=== PATIENT | male | born 1955 | race Caucasian/White ===

== ENCOUNTER 2017-01-21 19:31 | Emergency (ER) | payer OTHER ==
[~2017-01-21] VITALS: Ht 177.8 cm; Wt 86.2 kg
--- NOTE | 2017-01-21 19:44 | ED.ADGEN ---
Adult General Chief Complaint Chief Complaint " I need a caldwell put in...".. " I was at Dr. Perdomo... and they had a CT done for my lower abd. pain.. and I guess it came back with large prostate.. and retained urine.. they called and told me to go to the Emergency Room and get a cath put in and followup tomorrow... "..." I do go to the bathroom.. but not very much at a time..." HPI HPI Patient is a 61 year old male who presents with above hx and complaints of urinary retention. Pt. has a very distended bladder. Pt. reports normal urine check at Dr. Perdomo office. Pt. states they also found he had elevated glucose level and hypertension. Pt. advised he just wanted the caldwell placed and he would follow up with his tomorrow. Patient denies prior history of urinary retention. Patient denies prior history of diabetes. Review of Systems Review of Systems Constitutional: Denies fever or chills [] Eyes: Denies change in visual acuity, redness, or eye pain [] HENT: Denies nasal congestion or sore throat [] Respiratory: Denies cough or shortness of breath [] Cardiovascular: No additional information not addressed in HPI [] GI: Plaints of lower pelvic abdominal pain,. Denies nausea, vomiting, bloody stools or diarrhea [] : Complaints lower pelvic pain discomfort and urinary retention Musculoskeletal: Denies back pain or joint pain [] Integument: Denies rash or skin lesions [] Neurologic: Denies headache, focal weakness or sensory changes [] Endocrine: Denies polyuria or polydipsia [] Family History Family History Non-contributory Current Medications Current Medications Current Medications Medications (Trade) Dose Ordered Sig/Deshaun Start Time Stop Time Status Last Admin Dose Admin Clonidine HCl (Catapres Tts-2) 1 patch 1X ONCE 01/21/17 21:45 01/21/17 21:46 DC 01/21/17 21:45 1 PATCH Clonidine HCl (Catapres) 0.2 mg 1X ONCE 01/21/17 21:45 01/21/17 21:46 DC 01/21/17 21:45 0.2 MG Hydrocodone Bitartrate/ Ibuprofen (Vicoprofen 7.5-200) 2 tab 1X ONCE 01/21/17 21:45 01/21/17 21:46 DC 01/21/17 21:45 2 TAB See Nursing for home meds. Allergies Allergies Allergies Coded Allergies Type Severity Reaction Last Updated Verified No Known Drug Allergies 01/21/17 No NKDA Physical Exam Physical Exam Constitutional: well nourished,moderate distress, non-toxic appearance. [] HENT: Normocephalic, atraumatic, bilateral external ears normal, oropharynx moist, no oral exudates, nose normal. [] Eyes: PERRLA, EOMI, conjunctiva normal, no discharge. [] Neck: Normal range of motion, no tenderness, supple, no stridor. [] Cardiovascular:Heart rate regular rhythm, no murmur [] Lungs & Thorax: Bilateral breath sounds clear to auscultation [] Abdomen: Bowel sounds decreased, soft, super pubic tenderness, no masses, no pulsatile masses. Distended bladder. Pt. declined rectal exam at this time. No true rebound. Skin: Warm, dry, no erythema, no rash. [] Back: No tenderness, no CVA tenderness. [] Extremities: No tenderness, no cyanosis, no clubbing, ROM intact, no edema. [] Neurologic: Alert and oriented X 3, normal motor function, normal sensory function, no focal deficits noted. [] Psychologic: Affect anxious, judgement normal, mood normal. [] Current Patient Data Vital Signs Vital Signs Date Time Temp Pulse Resp B/P Pulse Ox O2 Delivery O2 Flow Rate FiO2 01/21/17 21:45 98 217/120 01/21/17 19:35 98.9 20 100 Room Air Lab Results Laboratory Tests Test 01/21/17 20:40 Urine Collection Type U cath Urine Color Straw Urine Clarity Clear Urine pH 6.5 Urine Specific [place] 1.015 Urine Protein Neg (NEG-TRACE) Urine Glucose (UA) 500mg/dL (NEG) Urine Ketones (Stick) Negmg/dL (NEG) Urine Blood Mod (NEG) Urine Nitrite Neg (NEG) Urine Bilirubin Neg (NEG) Urine Urobilinogen Dipstick 0.2mg/dL (0.2 mg/dL) Urine Leukocyte Esterase Neg (NEG) Urine RBC Occ/HPF (0-2) Urine WBC Occ/HPF (0-4) Urine Squamous Epithelial Cells Occ/LPF Urine Bacteria 0/HPF (0-FEW) EKG EKG [] Radiology/Procedures Radiology/Procedures Reviewed CT findings at 1803 hrs.[] Course & Med Decision Making Course & Med Decision Making Pertinent Labs and Imaging studies reviewed. (See chart for details). After for placement patient had [id number] cc out with marked relief of symptoms. Patient given full instructions. Patient follow-up primary care. Patient return if any concerns. Pt. must follow-up of his elevated glucose level and hypertension. Patient declined any labs or further treatment this time. [] Final Impression Final Impression 1. Hx. of Enlarged Prostate 2. Urinary Retention 3. Hypertension- Accelerated[] 4. Diabetes. New diagnosis 5. Hydronephrosis- Problems: Dragon Disclaimer Dragon Disclaimer This electronic medical record was generated, in whole or in part, using a voice recognition dictation system. JAJA KU MD Jan 21, 2017 19:44
[2017-01-21 21:26] LABS: CLARITY,URINE CLEAR; COLOR,URINE STRAW; GLUCOSE,URINE 500 mg/dL (NEG)
[2017-01-21 21:27] LABS: BACTERIA,URINE 0 /HPF (0-FEW); BILIRUBIN,URINE NEG (NEG); NITRITE,URINE NEG (NEG); RBC,URINE OCC /HPF (0-2); SQUAMOUS EPITHELIAL CELL,UR OCC /LPF; UROBILINOGEN,URINE 0.2 mg/dL (0.2 mg/dL); WBC,URINE OCC /HPF (0-4)
[2017-01-21 21:45] VITALS: BP 217/120
[2017-01-21] MEDS ORDERED: CLONIDINE TTS-2 PATCH TD ONE (21:45)
[2017-01-21] MEDS ORDERED: CLONIDINE HCL 0.1 MG TABLET PO ONE (21:45)
[2017-01-21] MEDS ORDERED: HYDROCODON/IBUPROFEN 7.5/200MG TABLET. PO ONE (21:45)
== END 2017-01-21 21:50 | disposition home or self-care (01) ==
LOC: ER 19:31
DX: R33.9 Retention of urine, unspecified (principal); I10 Essential (primary) hypertension; E11.9 Type 2 diabetes mellitus without complications; N13.30 Unspecified hydronephrosis; R73.02 Impaired glucose tolerance (oral)
CPT/HCPCS: 51702; 81001; 99284-25

== ENCOUNTER → 2017-01-27 | Outpatient (CLI) | payer OTHER ==
[2017-01-21 21:45] VITALS: BP 217/120
== END | disposition home or self-care (01) ==
LOC: CLNUT 13:38
PROVIDERS: ATTEND General Practice
DX: E11.9 Type 2 diabetes mellitus without complications (principal); N40.0 Benign prostatic hyperplasia without lower urinary tract symptoms; R33.9 Retention of urine, unspecified
CPT/HCPCS: 97802

== ENCOUNTER → 2018-04-29 | Outpatient (CLI) | payer OTHER | END | disposition home or self-care (01) | LOC: LAB 09:29 | PROVIDERS: ATTEND Urology | DX: N40.1 Benign prostatic hyperplasia with lower urinary tract symptoms (principal) | CPT/HCPCS: G0103 ==

== ENCOUNTER → 2018-08-05 | Outpatient (CLI) | payer OTHER ==
[2018-08-05 09:38] LABS: BASO # 0.1 x10^3/uL (0.0-0.2); BASO % 1 % (0-3); EOS # 0.4 x10^3/uL (0.0-0.7); EOS % 6 % (0-3); HEMATOCRIT 43.2 % (39.0-53.0); HEMOGLOBIN 14.4 g/dL (13.0-17.5); LYMPH # 1.8 x10^3/uL (1.0-4.8); LYMPH % 27 % (24-48); MEAN CORPUSCULAR HEMOGLOBIN 31 pg (25-35); MEAN CORPUSCULAR HGB CONC 33 g/dL (31-37); MEAN CORPUSCULAR VOLUME 93 fL (79-100); MONO # 0.6 x10^3/uL (0.0-1.1); MONO % 9 % (0-9); NEUT # 3.6 x10^3uL (1.8-7.7); NEUT % 56 % (31-73); PLATELET COUNT 323 x10^3/uL (140-400); RED BLOOD COUNT 4.66 x10^6/uL (4.30-5.70); RED CELL DISTRIBUTION WIDTH 13.7 % (11.5-14.5); WHITE BLOOD COUNT 6.4 x10^3/uL (4.0-11.0)
[2018-08-05 09:54] LABS: ALBUMIN/GLOBULIN RATIO 1.3 (1.0-1.7); ALK PHOS 55 U/L (46-116); ALT (SGPT) 35 U/L (16-63); ANION GAP 7 (6-14); AST (SGOT) 18 U/L (15-37); BLOOD UREA NITROGEN 24 mg/dL (8-26); BUN/CREATININE RATIO 20 (6-20); C REACTIVE PROTEIN < 0.5 mg/L (0-3.3); CALCIUM 9.1 mg/dL (8.5-10.1); CARBON DIOXIDE 30 mmol/L (21-32); CHLORIDE 103 mmol/L (98-107); CREATININE 1.2 mg/dL (0.7-1.3); GFR 61.1; GLUCOSE 147 mg/dL (70-99); POTASSIUM 3.7 mmol/L (3.5-5.1); SODIUM 140 mmol/L (136-145); TOTAL BILIRUBIN 0.5 mg/dL (0.2-1.0); TOTAL PROTEIN 7.2 g/dL (6.4-8.2)
[2018-08-06 03:11] LABS: HEMOGLOBIN A1C 6.2 % (4.8-5.6)
== END | disposition home or self-care (01) ==
LOC: LAB 09:06
PROVIDERS: ATTEND General Practice
DX: I10 Essential (primary) hypertension (principal); E11.9 Type 2 diabetes mellitus without complications
CPT/HCPCS: 36415; 80053; 80061; 83036; 85025; 86140

== ENCOUNTER → 2018-12-23 | Outpatient (CLI) | payer OTHER ==
--- NOTE | 2018-12-23 08:56 | RAD ---
EXAM: Augustine scale and color Doppler renal artery sonogram. HISTORY: Hypertension. TECHNIQUE: Augustine scale and color Doppler sonographic imaging of the kidneys and renal arteries with spectral waveform analysis was performed. COMPARISON: None. FINDINGS: The right kidney measures 10.8 cm [id number]. The left kidney measures 11.8 cm [id number]. No solid or cystic renal lesion is seen. There is no hydronephrosis. There is a heterogeneous enlarged prostate resulting in deformation of the bladder base. There is slight bladder wall thickening which may be due to relative under distention. The mid aspect of the right renal artery is obscured due to bowel gas. The peak systolic velocities within the visualized renal arteries measure 69 cm/s on the right and 73 cm/s on the left. There are normal renal artery to aorta velocity ratios. IMPRESSION: 1. No Doppler evidence of greater than 60 percent stenosis within the renal arteries, with limited evaluation of the right renal artery due to bowel gas. 2. Unremarkable grayscale evaluation of the kidneys. 3. Prostatomegaly. Electronically signed by: Aditi Nunez MD (12/23/2018 8:53 AM) [id number]
== END | disposition home or self-care (01) ==
LOC: US 07:20
PROVIDERS: ATTEND Internal Medicine Cardiovascular Disease
DX: I10 Essential (primary) hypertension (principal); N40.0 Benign prostatic hyperplasia without lower urinary tract symptoms
CPT/HCPCS: 76770